=== PATIENT | female | born 1955 ===

== ENCOUNTER 2018-02-14 08:00 | Day surgery (SDC) | payer OTHER ==
[~2018-02-14 08:00] MED LIST: NORFLEX; PROVENTIL HFA6.7 GM; [UNRECOGNIZED DRUG - OTHER]
[2018-02-14] MEDS ORDERED: ULTRACET PO (15:27)
== END 2018-02-14 18:30 | disposition home or self-care (01) ==
LOC: CIR.AMB 08:00
DX: R15.9 Full incontinence of feces (principal)
CPT/HCPCS: 64581; C1778

== ENCOUNTER 2018-03-04 06:40 | Day surgery (SDC) | payer OTHER ==
[~2018-03-04 06:40] MED LIST changes: +ULTRACET PO
[2018-03-04] MEDS ORDERED: ULTRACET PO (10:24)
== END 2018-03-04 12:35 | disposition home or self-care (01) ==
LOC: CIR.AMB 06:40
DX: R15.9 Full incontinence of feces (principal)
CPT/HCPCS: 64590; C1767